=== PATIENT | female | born 1965 | race Caucasian/White ===

== ENCOUNTER → 2018-05-19 | Outpatient (CLI) | payer OTHER ==
[~2018-05-19] MED LIST: ALPR0.5T6 PO; DIAZ5TAB4 PO; FROV2.5T4 PO; ONAB200V IM; RIZA10TA5 PO; SUMA6PEN2 SQ; THYR90TA PO; [UNRECOGNIZED DRUG - REMARK] PO
[2018-05-19 09:58] LABS: BASOPHILS # (AUTO) 0.04 x10^3/uL (0-0.1); BASOPHILS % (AUTO) 1 % (0-1); EOSINOPHILS # (AUTO) 0.03 x10^3/uL (0-0.4); EOSINOPHILS % (AUTO) 1 % (1-7); LYMPHOCYTES # (AUTO) 1.73 x10^3/uL (1-3.4); LYMPHOCYTES % (AUTO) 26 % (22-44); MD NO; MEAN CORPUSCULAR HEMOGLOBIN 28.6 pg (27.0-34.8); MEAN CORPUSCULAR VOLUME 84.3 fL (80-100); MEAN PLATELET VOLUME 7.3 fL (7.4-10.4); MONOCYTES # (AUTO) 0.33 x10^3/uL (0.2-0.8); MONOCYTES % (AUTO) 5 % (2-9); NEUTROPHILS # (AUTO) 4.42 x10^3/uL (1.8-6.8); NEUTROPHILS % (AUTO) 68 % (42-75); PLATELET COUNT 438 x10^3/uL (130-400); RED BLOOD COUNT 4.86 x10^6/uL (3.82-5.3); RED CELL DISTRIBUTION WIDTH 13.7 % (9.6-15.2)
[2018-05-19 10:01] LABS: MICROSCOPIC NOT IND
[2018-05-19 10:09] LABS: ALANINE AMINOTRANSFERASE 20 U/L (12-78); ALBUMIN 4.1 g/dL (3.4-5.0); ANION GAP 8 mmol/L (5-15); CALCIUM 9.1 mg/dL (8.5-10.1); CHLORIDE 105 mmol/L (98-107); CREATININE 0.88 mg/dL (0.55-1.02)
[2018-05-19 10:14] LABS: ALKALINE PHOSPHATASE 76 U/L (45-117); BILIRUBIN,TOTAL 0.3 mg/dL (0.2-1.0); TOTAL PROTEIN 8.4 g/dL (6.4-8.2)
== END | disposition home or self-care (01) ==
LOC: STAR 08:54
PROVIDERS: ATTEND Obstetrics & Gynecology
DX: Z01.818 Encounter for other preprocedural examination (principal); G43.829 Menstrual migraine, not intractable, without status migrainosus
CPT/HCPCS: 36415; 80053; 81003; 84702; 85025; 93005

== ENCOUNTER 2018-08-04 11:22 | Inpatient (IN) | payer OTHER ==
[~2018-08-04] VITALS: Ht 160 cm; Wt 85.3 kg
[2018-08-04] MEDS ORDERED: BUPIVACAINE/PF-EPI 0.25% 1:200K ONE (12:08)
[2018-08-04] MEDS ORDERED: LACTATED RINGERS 1,000 ML IV SCH (12:08)
[2018-08-04] MEDS ORDERED: PROPOFOL 10 MG/ML, 20ML ONE (12:13)
[2018-08-04] MEDS ORDERED: FENTANYL PF 250 MCG/5ML ONE (12:13)
[2018-08-04] MEDS ORDERED: MIDAZOLAM 1 MG/ML, 2ML ONE ×2 (12:13→16:22)
[2018-08-04] MEDS ORDERED: SUCCINYLCHOLINE 20 MG/ML, 10ML ONE (12:16)
[2018-08-04] MEDS ORDERED: DEXAMETHASONE 4 MG/ML, 1ML ONE ×2 (12:16)
[2018-08-04] MEDS ORDERED: ROCURONIUM 10MG/ML,5ML ONE (12:16)
[2018-08-04] MEDS ORDERED: LIDOCAINE-MPF 1%, 2ML INFIL ONE (12:30)
[2018-08-04] MEDS ORDERED: DIAZEPAM 5 MG TABLET PO ONE (13:00)
[2018-08-04] MEDS ORDERED: SCOPOLAMINE PATCH, 1.5MG PATCH.TD72 TD ONE (13:00)
[2018-08-04] MEDS ORDERED: ONDANSETRON ODT 8 MG PO ONE (13:00)
[2018-08-04] MEDS ORDERED: ACETAMINOPHEN 500 MG TABLET PO ONE (13:00)
[2018-08-04] MEDS ORDERED: NEOSTIGMINE 1 MG/ML, 10ML ONE (13:16)
[2018-08-04] MEDS ORDERED: CEFAZOLIN 1,000 MG ONE (13:16)
[2018-08-04] MEDS ORDERED: GLYCOPYRROLATE 0.2MG/1ML, 5ML ONE (13:16)
[2018-08-04] MEDS ORDERED: HALOPERIDOL 5 MG/ML IV PRN (14:00)
[2018-08-04] MEDS ORDERED: MORPHINE SULFATE 4 MG/ML, 1ML IVPush PRN (14:00)
[2018-08-04] MEDS ORDERED: MIDAZOLAM 1 MG/ML, 2ML IV PRN (14:00)
[2018-08-04] MEDS ORDERED: PROMETHAZINE 12.5 MG SUPP PR PRN (14:00)
[2018-08-04] MEDS ORDERED: PROMETHAZINE 25 MG/ML, 1ML IV PRN (14:00)
[2018-08-04] MEDS ORDERED: EPHEDRINE 50 MG/ML, 1ML IVPush PRN (14:00)
[2018-08-04] MEDS ORDERED: OXYcodone 5 MG/5 ML ORAL.SOL UDC PO PRN (14:00)
[2018-08-04] MEDS ORDERED: ALBUTEROL SULFATE 2.5 MG/3 ML NPPB PRN (14:00)
[2018-08-04] MEDS ORDERED: hydrALAzine 20 MG/ML, 1ML IV PRN (14:00)
[2018-08-04] MEDS ORDERED: ONDANSETRON ODT 8 MG PO PRN (14:00)
[2018-08-04] MEDS ORDERED: DIAZEPAM 5 MG/ML, 2ML IVPush PRN (14:00)
[2018-08-04] MEDS ORDERED: LABETALOL 5MG/ML, 20ML IV PRN (14:00)
[2018-08-04] MEDS ORDERED: MEPERIDINE/PF 25MG/0.5ML IVPush PRN (14:00)
[2018-08-04] MEDS ORDERED: HYDROmorphone 2 MG/ML, 1ML IVPush PRN (14:00)
[2018-08-04] MEDS ORDERED: ONDANSETRON 2MG/ML, 2ML IV PRN (14:00)
[2018-08-04] MEDS ORDERED: FLUORESCEIN SODIUM 500 MG/5 ML ONE (14:47)
[2018-08-04] MEDS ORDERED: KETOROLAC 30 MG/1 ML ONE (15:43)
[2018-08-04] MEDS ORDERED: ONDANSETRON 2MG/ML, 2ML ONE ×2 (15:50)
[2018-08-04] MEDS ORDERED: FENTANYL PF 100 MCG/2ML ONE (16:18)
[2018-08-04] MEDS ORDERED: OXYcodone 5 MG/5 ML ORAL.SOL UDC ONE (16:18)
[2018-08-04] MEDS: FENTANYL PF 100 MCG/2ML IV PRN ×2 (16:20→16:30)
[2018-08-04] MEDS ORDERED: MEPERIDINE/PF 50 MG/ML ONE (17:12)
[2018-08-04] MEDS ORDERED: KETOROLAC 30 MG/1 ML IV PRN (19:30)
[2018-08-04] MEDS ORDERED: OXYcodone/APAP 5/325MG TABLET PO PRN (19:30)
[2018-08-04] MEDS: D5%-LACTATED RINGERS 1,000 ML IV SCH (19:30)
[2018-08-04 20:42] VITALS: BP 102/58
[2018-08-04] MEDS: SODIUM CHLORIDE FLUSH 10ML SYR IVF SCH (21:00)
[2018-08-04] MEDS: SIMETHICONE 80 MG CHEW TAB PO SCH (22:37)
[2018-08-04] MEDS: IBUPROFEN 600 MG TABLET PO PRN (22:37)
[2018-08-05 00:20] VITALS: BP 109/62
[2018-08-05] MEDS: D5%-LACTATED RINGERS 1,000 ML IV SCH ×2 (00:26→11:30)
[2018-08-05 05:15] VITALS: BP 90/49
[2018-08-05 07:46] VITALS: BP 93/57
[2018-08-05] MEDS ORDERED: OXYC-302 PO (09:32)
[2018-08-05] MEDS ORDERED: IBUP-1222 PO (09:33)
[2018-08-05] MEDS: SIMETHICONE 80 MG CHEW TAB PO SCH (09:49)
[2018-08-05] MEDS: SODIUM CHLORIDE FLUSH 10ML SYR IVF SCH (09:49)
[2018-08-05] MEDS: IBUPROFEN 600 MG TABLET PO PRN (09:49)
[2018-08-05 12:39] VITALS: BP 91/48
== END 2018-08-05 13:05 | disposition home or self-care (01) | DRG 743 ==
LOC: OUT 11:22 → 4NOR 17:39 → OUT 17:43 → 4NOR 17:43 → DCLOUNGE 08-05 12:52
PROVIDERS: ADMIT Obstetrics & Gynecology; ATTEND Obstetrics & Gynecology
PROC: 0UT7FZZ Resection of Bilateral Fallopian Tubes, Via Natural or Artificial Opening With Percutaneous Endoscopic Assistance (ICD-10-PCS; 2018-08-04)
PROC: 0UT2FZZ Resection of Bilateral Ovaries, Via Natural or Artificial Opening With Percutaneous Endoscopic Assistance (ICD-10-PCS; 2018-08-04)
PROC: 0TJB8ZZ Inspection of Bladder, Via Natural or Artificial Opening Endoscopic (ICD-10-PCS; 2018-08-04)
PROC: 0UT9FZZ Resection of Uterus, Via Natural or Artificial Opening With Percutaneous Endoscopic Assistance (ICD-10-PCS; principal; 2018-08-04 14:00)
DX: N80.8 Other endometriosis (principal); G43.829 Menstrual migraine, not intractable, without status migrainosus; E03.9 Hypothyroidism, unspecified; Z80.41 Family history of malignant neoplasm of ovary; Z83.3 Family history of diabetes mellitus; Z90.49 Acquired absence of other specified parts of digestive tract
CPT/HCPCS: 36415; J3490; J7121; 85014; 85018; 86850; 86900; 88307; G0378; J0690; J1100; J1885; J2175; J2250; J2270; J2405; J2704; J2710; J3010; Q0162; J0330; J7120